=== PATIENT | female | born 1960 | race American Indian/Alaskan Native ===

== ENCOUNTER 2017-09-26 15:35 | Emergency (ER) | payer SELFPAY ==
--- NOTE | 2017-09-26 20:07 | Emergency Department Report ---
ED ENT HPI - General Chief complaint: Headache Stated complaint: HEADACHE,EARACHE,AND TOOTHACHE Time Seen by Provider: 09/26/17 20:00 Source: patient Mode of arrival: Ambulatory Limitations: No Limitations - History of Present Illness Initial comments: Patient reports that she has right earache and toothache to lower front tooth. She is also saying that pain is radiating up to her head. This has been ongoing for days. No relief with [id number] medication. Denies any fever or chills. Pain is 8 out of 10 and achy. Worse with eating. Pain is constant. Patient states that she has an appointment with grade need to have a tooth pulled. Denies any sore throat or drooling. She said this has been ongoing problem and she cannot bear pain. No alleviating factor, Exacerbated by eating. Negative cough, shortness of breath, chest pain or runny nose. Denies any dizziness or blurred vision. Denies any head injury or trauma. MD complaint: tooth pain Onset/Timin Location: R ear, tooth # (lower front), other (right side of head) Severity: severe (8/10) Severity scale (0 -10): 8 Quality: aching Consistency: constant Improves with: rest Worsens with: eating, movement Context- Dental: history of dental caries, poor dental care Associated Symptoms: toothache. denies: fever, cough, gum swelling, pain with swallowing, sore throat, tinnitus, hearing loss, discharge from ear, rhinorrhea - Related Data Previous Rx's Medication Instructions Recorded Last Taken Type Acetaminophen/Codeine [Tylenol 1 tab PO Q6H PRN #12 tab 09/26/17 Unknown Rx /Codeine # 3 tab] Amoxicillin [Amoxicillin TAB] 875 mg PO BID 10 Days #20 tablet 09/26/17 Unknown Rx Ibuprofen [Motrin] 800 mg PO Q8HR PRN #20 tablet 09/26/17 Unknown Rx Allergies Allergy/AdvReac Type Severity Reaction Status Date / Time No Known Allergies Allergy Unverified 09/26/17 15:45 ED Dental HPI - General Chief complaint: Headache Stated complaint: HEADACHE,EARACHE,AND TOOTHACHE Time Seen by Provider: 09/26/17 20:00 Source: patient Mode of arrival: Ambulatory Limitations: No Limitations - Related Data Previous Rx's Medication Instructions Recorded Last Taken Type Acetaminophen/Codeine [Tylenol 1 tab PO Q6H PRN #12 tab 09/26/17 Unknown Rx /Codeine # 3 tab] Amoxicillin [Amoxicillin TAB] 875 mg PO BID 10 Days #20 tablet 09/26/17 Unknown Rx Ibuprofen [Motrin] 800 mg PO Q8HR PRN #20 tablet 09/26/17 Unknown Rx Allergies Allergy/AdvReac Type Severity Reaction Status Date / Time No Known Allergies Allergy Unverified 09/26/17 15:45 ED Review of Systems ROS: Stated complaint: HEADACHE,EARACHE,AND TOOTHACHE Other details as noted in HPI Constitutional: denies: chills, fever Eyes: denies: eye pain, eye discharge, vision change ENT: ear pain, dental pain. denies: throat pain, hearing loss, congestion Respiratory: denies: cough, shortness of breath, SOB with exertion, SOB at rest , stridor, wheezing Cardiovascular: denies: chest pain, palpitations, dyspnea on exertion, edema, syncope, paroxysmal nocturnal dyspnea Gastrointestinal: denies: nausea, vomiting Genitourinary: denies: urgency, dysuria, discharge Musculoskeletal: denies: back pain, joint swelling, arthralgia Skin: denies: rash, lesions Neurological: headache. denies: weakness, numbness, paresthesias, confusion, abnormal gait, vertigo ED Past Medical Hx - Past Medical History Previous Medical History?: Yes Hx Hypertension: Yes Additional medical history: DENTAL CARIES - Surgical History Past Surgical History?: Yes Additional Surgical History: PARTIAL HYSTERECTOMY - Family History Family history: hypertension - Social History Smoking Status: Never Smoker Substance Use Type: Non Opiate Pain Other Social History: Single , lives family - Medications Home Medications: Home Medications Medication Instructions Recorded Confirmed Last Taken Type Acetaminophen/Codeine [Tylenol 1 tab PO Q6H PRN #12 tab 09/26/17 Unknown Rx /Codeine # 3 tab] Amoxicillin [Amoxicillin TAB] 875 mg PO BID 10 Days #20 tablet 09/26/17 Unknown Rx Ibuprofen [Motrin] 800 mg PO Q8HR PRN #20 tablet 09/26/17 Unknown Rx ED Physical Exam - General Limitations: No Limitations General appearance: alert, in no apparent distress - Head Head exam: Present: atraumatic, normocephalic, normal inspection - Eye Eye exam: Present: normal appearance, PERRL, EOMI Pupils: Present: normal accommodation - ENT ENT exam: Present: normal orophraynx, mucous membranes moist, TM's normal bilaterally, normal external ear exam. Absent: normal exam - Expanded ENT Exam Expanded Ear exam: Present: normal external inspection Mouth exam: Present: tongue normal. Absent: drooling, trismus, muffled voice Teeth exam: Present: dental caries (23, 2425 and 26), dental tenderness # ( around #23, 24, 25 and 26), other (gingivitis, patient with all missing teeth except for 23, 24, 25 and 26 With dental caries) Throat exam: Positive: normal inspection. Negative: tonsillar erythema, tonsillomegaly, tonsillar exudate, R peritonsillar mass, L peritonsillar mass - Neck Neck exam: Present: normal inspection, full ROM. Absent: tenderness, lymphadenopathy - Respiratory Respiratory exam: Present: normal lung sounds bilaterally. Absent: respiratory distress, chest wall tenderness, accessory muscle use - Cardiovascular Cardiovascular Exam: Present: regular rate, normal rhythm, normal heart sounds, gallop. Absent: systolic murmur, diastolic murmur - GI/Abdominal GI/Abdominal exam: Present: soft, normal bowel sounds - Extremities Exam Extremities exam: Present: normal inspection, full ROM, normal capillary refill , joint swelling, other (no clubbing, cyanosis or edema. +2 pulses all extremities). Absent: tenderness, pedal edema - Back Exam Back exam: Present: normal inspection, full ROM - Neurological Exam Neurological exam: Present: alert, oriented X3, normal gait, reflexes normal, other (no gross focal deficit). Absent: motor sensory deficit - Psychiatric Psychiatric exam: Present: normal affect, normal mood - Skin Skin exam: Present: warm, dry, intact, normal color. Absent: rash ED Course Vital Signs 09/26/17 15:45 Temperature 98.8 F Pulse Rate 77 Respiratory 18 Rate Blood Pressure 159/98 O2 Sat by Pulse 99 Oximetry - Reevaluation(s) Reevaluation #1: 09/26/17 21:36 She given Toradol 60 mg IM and tramadol 50 mg by mouth for dental pain. She voiced relief of pain down to 2 out of 10 and no headache or earache at present. ED Medical Decision Making - Medical Decision Making ED course: She reported and toothache that is radiating to right side of head and right ear. And that she has an appointment at [facility] to remove tooth #23, 24 ,25 and 26 which are tender to palpate around gumline. And patient with gingivitis. She has no teeth except for those mentioned above. All teeth with dental caries. Patient said that this has been ongoing and pain has worsened today. She was given Toradol 60 mg IM and tramadol 50 mg by mouth for pain which relieved her pain. Patient discharged home to follow-up with [facility] for removal of tooth and I also gave her information at [facility] dental clinic if she cannot get into [facility]. I discussed diagnosis and treatment plan and she is in agreement. Patient discharged home with prescription for Motrin, Tylenol 3 and amoxicillin. Critical care attestation.: If time is entered above; I have spent that time in minutes in the direct care of this critically ill patient, excluding procedure time. ED Disposition Clinical Impression: Gingivitis, Tooth caries, Tooth ache Disposition: TO HOME OR SELFCARE Is pt being admited?: No Does the pt Need Aspirin: No Condition: Stable Instructions: Dental Caries (ED), Toothache (ED), Gingivitis (ED) Additional Instructions: Please keep your appointment at [facility] to evaluate and treat dental caries and gingivitis. If he cannot get a [facility] clinic, call [facility] dental clinic tomorrow to see if he can get early appointment Take Motrin and Tylenol No. 3 for pain but please do not drive or operate heavy machinery while taking Tylenol No. 3 causes drowsiness Take antibiotic as prescribed Prescriptions: Acetaminophen/Codeine [Tylenol /Codeine # 3 tab] 1 tab PO Q6H PRN #12 tab PRN Reason: severe Amoxicillin [Amoxicillin TAB] 875 mg PO BID 10 Days #20 tablet Ibuprofen [Motrin] 800 mg PO Q8HR PRN #20 tablet PRN Reason: mild to moderate pain Referrals: [facility] [Outside] - 3-5 Days [facility] [Outside] - 3-5 Days Forms: Work/School Release Form(ED)
[2017-09-26] MEDS ORDERED: TORADOL IM ONE (20:08)
[2017-09-26] MEDS ORDERED: ULTRAM PO ONE (20:09)
[2017-09-26 21:55] VITALS: BP 146/94
== END 2017-09-26 21:55 | disposition home or self-care (01) ==
LOC: ED 15:35
DX: K05.10 Chronic gingivitis, plaque induced (principal); K02.9 Dental caries, unspecified; I10 Essential (primary) hypertension; Z90.711 Acquired absence of uterus with remaining cervical stump
CPT/HCPCS: 96372; 99282; J1885

== ENCOUNTER 2017-12-04 09:27 | Emergency (ER) | payer OTHER ==
--- NOTE | 2017-12-04 11:37 | Emergency Department Report ---
Eye Injury/Foreign Body - HPI Duration: 4 Days Eye Location: Right Severity: Moderate Tetanus Status: Not up to Date Eye Symptoms: Eye Pain: Yes, Blurred Vision: No, Eye Redness: No, Grinding/ Hammering Metal: No, Used Eye Protection: No, Contact Lens Use: No, Recalls Injury: No, Photophobia: No Other History: This is a 56 y.o. female that presents with right eye swelling and blisters for 4 days. Patient reports noticing small bumps on right upper eyelid 3 days ago. Yesterday a large bump appeared to left of right eye near nose tender to touch with purulent discharge. Denies wearing contacts or glasses, photophobia, fever, ED Review of Systems ROS: Stated complaint: RT EYE SWOLLEN Other details as noted in HPI Constitutional: denies: chills, fever Eyes: other (blistering and swelling right upper eyelid). denies: eye pain, eye discharge, vision change Respiratory: denies: cough, shortness of breath, wheezing Cardiovascular: denies: chest pain, palpitations Gastrointestinal: denies: abdominal pain, nausea, diarrhea Skin: denies: rash, lesions Neurological: denies: headache, weakness, numbness, paresthesias Psychiatric: denies: anxiety, depression ED Past Medical Hx - Past Medical History Hx Hypertension: Yes Additional medical history: DENTAL CARIES - Surgical History Past Surgical History?: Yes Additional Surgical History: PARTIAL HYSTERECTOMY - Social History Smoking Status: Never Smoker Substance Use Type: None - Medications Home Medications: Home Medications Medication Instructions Recorded Confirmed Last Taken Type Acetaminophen/Codeine [Tylenol 1 tab PO Q6H PRN #12 tab 09/26/17 Unknown Rx /Codeine # 3 tab] Amoxicillin [Amoxicillin TAB] 875 mg PO BID 10 Days #20 tablet 09/26/17 Unknown Rx Ibuprofen [Motrin] 800 mg PO Q8HR PRN #20 tablet 09/26/17 Unknown Rx Amoxicillin/Potassium Clav 1 each PO BID 7 Days #14 tablet 12/04/17 Unknown Rx [Augmentin 500-125 Tablet] Ibuprofen [Motrin 800 MG tab] 800 mg PO Q8HR PRN #20 tablet 12/04/17 Unknown Rx Valacyclovir HCl [Valtrex] 1,000 mg PO TID #21 tablet 12/04/17 Unknown Rx Eye Injury Exam - Exam General: Vital signs noted. No distress. Alert and acting appropriately. - Visual Acuity Right Vision Acuity Degree: 20/30 Eye Exam: Right Chemosis, Both EOMI, Neither Injection, Neither Abnormal Pupil, Neither Eye Foreign Body, Neither Lid Foreign Body, Neither Mucous Discharge, Neither Purulent Discharge, Neither Fluorescein Uptake, Neither Fluorescein Uptake (slit lamp), Neither Cell/Flare (slit lamp), Neither Corneal Edema, Neither Photophobia Exam: vesicular erythematous rash right upper eyelid, 1/2 cm papule to left of right eye, no active drainage, tender to touch Left Vision Acuity Degree: 20/30 ED Course Vital Signs 12/04/17 09:35 Temperature 98.4 F Pulse Rate 66 Respiratory 18 Rate Blood Pressure 126/89 O2 Sat by Pulse 100 Oximetry ED Medical Decision Making - Medical Decision Making This is a 56 y.o. female that presents with vesicular rash of right upper eyelid for 4 days. Patient was examined by myself. Patient is in no acute distress. No labs or radiograph obtained. Physical findings susceptible of herpes ophthalmicus. Patient given valacyclovir 1000 mg by mouth once while in ER and tetanus vaccine. Start valacyclovir, ibuprofen, and Augmentin. Patient instructed to follow-up with ophthalmology in 24 hours. Follow-up with primary care provider in 2-3 days. Critical care attestation.: If time is entered above; I have spent that time in minutes in the direct care of this critically ill patient, excluding procedure time. ED Disposition Clinical Impression: Herpes zoster ophthalmicus of right eye Disposition: DC-01 TO HOME OR SELFCARE Is pt being admited?: No Does the pt Need Aspirin: No Condition: Stable Instructions: Herpes Zoster (ED) Additional Instructions: Follow-up with community health nurse staff in 24-48 hours for reevaluation of vision. Complete full course of antiviral medication and antibiotics as prescribed. Take ibuprofen every 8 hours as needed for pain. Follow-up with primary care provider in 2-3 days. Prescriptions: Amoxicillin/Potassium Clav [Augmentin 500-125 Tablet] 1 each PO BID 7 Days #14 tablet Ibuprofen [Motrin 800 MG tab] 800 mg PO Q8HR PRN #20 tablet PRN Reason: Pain , Severe (7-10) Valacyclovir HCl [Valtrex] 1,000 mg PO TID #21 tablet Referrals: [facility] [Provider Group] - 3-5 Days SAWYER MCKEON MD [Staff Physician] - 3-5 Days AURA LAURENT MD [Staff Physician] - 3-5 Days [facility] [Outside] - 3-5 Days Time of Disposition: 12:54 Print Language: AFGHAN
[2017-12-04 13:43] VITALS: BP 130/70
[2017-12-04] MEDS ORDERED: VALTREX PO ONE (13:58)
== END 2017-12-04 13:42 | disposition home or self-care (01) ==
LOC: ED 09:27
DX: B02.39 Other herpes zoster eye disease (principal); I10 Essential (primary) hypertension; Z90.711 Acquired absence of uterus with remaining cervical stump
CPT/HCPCS: 99282

== ENCOUNTER 2018-01-16 09:16 | Emergency (ER) | payer SELFPAY ==
[2018-01-16 09:25] VITALS: BP 142/90
[2018-01-16] MEDS ORDERED: NORCO 10/325 PO ONE (12:55)
[2018-01-16] MEDS ORDERED: ZOFRAN ODT PO ONE (12:55)
--- NOTE | 2018-01-16 13:02 | Emergency Department Report ---
ED General Adult HPI - General Chief complaint: Dental/Oral Stated complaint: EAR ACHE/TOOTHACHE Time Seen by Provider: 01/16/18 12:25 Source: patient Mode of arrival: Ambulatory Limitations: No Limitations - History of Present Illness Initial comments: Patient presents to the emergency department with a chief complaint of dental pain. Patient states this morning around 3 AM she noticed that she was having some pain on the right side of her mouth and the lower aspect. Patient states she has multiple dental issues and has not seen a dentist. Patient denies fever , chest pain, shortness breath, headache. -: Sudden Radiation: non-radiation Severity scale (0 -10): 7 Quality: constant Improves with: none Worsens with: cold therapy, eating Associated Symptoms: denies other symptoms Treatments Prior to Arrival: NSAID - Related Data Previous Rx's Medication Instructions Recorded Last Taken Type Acetaminophen/Codeine [Tylenol 1 tab PO Q6H PRN #12 tab 09/26/17 Unknown Rx /Codeine # 3 tab] Amoxicillin [Amoxicillin TAB] 875 mg PO BID 10 Days #20 tablet 09/26/17 Unknown Rx Ibuprofen [Motrin] 800 mg PO Q8HR PRN #20 tablet 09/26/17 Unknown Rx Amoxicillin/Potassium Clav 1 each PO BID 7 Days #14 tablet 12/04/17 Unknown Rx [Augmentin 500-125 Tablet] Ibuprofen [Motrin 800 MG tab] 800 mg PO Q8HR PRN #20 tablet 12/04/17 Unknown Rx Valacyclovir HCl [Valtrex] 1,000 mg PO TID #21 tablet 12/04/17 Unknown Rx HYDROcodone/ACETAMINOPHEN [[place] 1 each PO Q6HR PRN #12 tablet 01/16/18 Unknown Rx 5-325 Tablet] Ibuprofen [Motrin] 800 mg PO Q8HR PRN #30 tablet 01/16/18 Unknown Rx Penicillin V Potassium 500 mg PO TID #21 tablet 01/16/18 Unknown Rx Allergies Allergy/AdvReac Type Severity Reaction Status Date / Time No Known Allergies Allergy Unverified 09/26/17 15:45 ED Review of Systems ROS: Stated complaint: EAR ACHE/TOOTHACHE Other details as noted in HPI Constitutional: denies: chills, fever Eyes: denies: eye pain, eye discharge, vision change ENT: dental pain. denies: ear pain, throat pain Respiratory: denies: cough, shortness of breath, wheezing Cardiovascular: denies: chest pain, palpitations Endocrine: no symptoms reported Gastrointestinal: denies: abdominal pain, nausea, diarrhea Genitourinary: denies: urgency, dysuria, discharge Musculoskeletal: denies: back pain, joint swelling, arthralgia Skin: denies: rash, lesions Neurological: denies: headache, weakness, paresthesias Psychiatric: denies: anxiety, depression Hematological/Lymphatic: denies: easy bleeding, easy bruising ED Past Medical Hx - Past Medical History Hx Hypertension: No Additional medical history: DENTAL CARIES - Surgical History Additional Surgical History: PARTIAL HYSTERECTOMY - Social History Smoking Status: Never Smoker Substance Use Type: None - Medications Home Medications: Home Medications Medication Instructions Recorded Confirmed Last Taken Type Acetaminophen/Codeine [Tylenol 1 tab PO Q6H PRN #12 tab 09/26/17 Unknown Rx /Codeine # 3 tab] Amoxicillin [Amoxicillin TAB] 875 mg PO BID 10 Days #20 tablet 09/26/17 Unknown Rx Ibuprofen [Motrin] 800 mg PO Q8HR PRN #20 tablet 09/26/17 Unknown Rx Amoxicillin/Potassium Clav 1 each PO BID 7 Days #14 tablet 12/04/17 Unknown Rx [Augmentin 500-125 Tablet] Ibuprofen [Motrin 800 MG tab] 800 mg PO Q8HR PRN #20 tablet 12/04/17 Unknown Rx Valacyclovir HCl [Valtrex] 1,000 mg PO TID #21 tablet 12/04/17 Unknown Rx HYDROcodone/ACETAMINOPHEN [[place] 1 each PO Q6HR PRN #12 tablet 01/16/18 Unknown Rx 5-325 Tablet] Ibuprofen [Motrin] 800 mg PO Q8HR PRN #30 tablet 01/16/18 Unknown Rx Penicillin V Potassium 500 mg PO TID #21 tablet 01/16/18 Unknown Rx ED Physical Exam - General Limitations: No Limitations General appearance: alert, in no apparent distress - Head Head exam: Present: atraumatic, normocephalic - Eye Eye exam: Present: normal appearance - ENT ENT exam: Present: mucous membranes moist, other (dental caries) - Neck Neck exam: Present: normal inspection - Respiratory Respiratory exam: Present: normal lung sounds bilaterally. Absent: respiratory distress - Cardiovascular Cardiovascular Exam: Present: regular rate, normal rhythm. Absent: systolic murmur, diastolic murmur, rubs, gallop - GI/Abdominal GI/Abdominal exam: Present: soft, normal bowel sounds - Extremities Exam Extremities exam: Present: normal inspection - Back Exam Back exam: Present: normal inspection - Neurological Exam Neurological exam: Present: alert, oriented X3 - Psychiatric Psychiatric exam: Present: normal affect, normal mood - Skin Skin exam: Present: warm, dry, intact, normal color. Absent: rash ED Course Vital Signs 01/16/18 09:22 Temperature 98.4 F Pulse Rate 67 Respiratory 15 Rate Blood Pressure 142/90 O2 Sat by Pulse 100 Oximetry ED Medical Decision Making - Medical Decision Making Discussed plan of care with patient Critical care attestation.: If time is entered above; I have spent that time in minutes in the direct care of this critically ill patient, excluding procedure time. ED Disposition Clinical Impression: Pain, dental Disposition: DC- TO HOME OR SELFCARE Is pt being admited?: No Does the pt Need Aspirin: No Condition: Stable Instructions: Toothache (ED) Additional Instructions: return if worse Prescriptions: HYDROcodone/ACETAMINOPHEN [[place] 5-325 Tablet] 1 each PO Q6HR PRN #12 tablet PRN Reason: pain Ibuprofen [Motrin] 800 mg PO Q8HR PRN #30 tablet PRN Reason: pain Penicillin V Potassium 500 mg PO TID #21 tablet Referrals: PRIMARY CARE, [Primary Care Provider] - 3-5 Days [facility] [Outside] - 3-5 Days Time of Disposition: 12:59
== END 2018-01-16 13:19 | disposition home or self-care (01) ==
LOC: ED 09:16
DX: K08.89 Other specified disorders of teeth and supporting structures (principal); Z90.711 Acquired absence of uterus with remaining cervical stump
CPT/HCPCS: 99282; Q0162

== ENCOUNTER 2018-10-30 17:10 | Emergency (ER) | payer OTHER, SELFPAY ==
--- NOTE | 2018-10-30 17:15 | Emergency Department Report ---
Blank Doc - Documentation Documentation: This is a 57-year-old female that presents with cough and left knee pain. This initial assessment/diagnostic orders/clinical plan/treatment(s) is/are subject to change based on patient's health status, clinical progression and re- assessment by fellow clinical providers in the ED. Further treatment and workup at subsequent clinical providers discretion. Patient/guardians urged not to elope from the ED as their condition may be serious if not clinically assessed and managed. Initial orders include: 1- Patient sent to [facility] for further evaluation and treatment 2- xrays
--- NOTE | 2018-10-30 18:55 | Emergency Department Report ---
ED General Adult HPI - General Chief complaint: Extremity Injury, Lower Stated complaint: COUGH/LT KNEE PAIN Time Seen by Provider: 10/30/18 17:14 Source: patient Mode of arrival: Ambulatory Limitations: No Limitations - History of Present Illness Initial comments: Pt is a 57 yo female who presents to the ED with c/o left knee pain that began two weeks ago. She denies any fall or injury. she denies any numbness or weakness. she has never injured previously. she denies any known hx of arthritis. she is also c/o a cough that began three weeks ago. she has not been taking anything for the cough. she denies any sputum production. she denies any fever or nasal congestion. she denies any PMHx. no allergies to meds. - Related Data Previous Rx's Medication Instructions Recorded Last Taken Type Acetaminophen/Codeine [Tylenol 1 tab PO Q6H PRN #12 tab 09/26/17 Unknown Rx /Codeine # 3 tab] Amoxicillin [Amoxicillin TAB] 875 mg PO BID 10 Days #20 tablet 09/26/17 Unknown Rx Ibuprofen [Motrin] 800 mg PO Q8HR PRN #20 tablet 09/26/17 Unknown Rx Amoxicillin/Potassium Clav 1 each PO BID 7 Days #14 tablet 12/04/17 Unknown Rx [Augmentin 500-125 Tablet] Ibuprofen [Motrin 800 MG tab] 800 mg PO Q8HR PRN #20 tablet 12/04/17 Unknown Rx Valacyclovir HCl [Valtrex] 1,000 mg PO TID #21 tablet 12/04/17 Unknown Rx HYDROcodone/ACETAMINOPHEN [[place] 1 each PO Q6HR PRN #12 tablet 01/16/18 Unknown Rx 5-325 Tablet] Ibuprofen [Motrin] 800 mg PO Q8HR PRN #30 tablet 01/16/18 Unknown Rx Penicillin V Potassium 500 mg PO TID #21 tablet 01/16/18 Unknown Rx Benzonatate [Tessalon Perles] 100 mg PO Q8HR PRN #20 capsule 10/30/18 Unknown Rx Cetirizine HCl [Zyrtec 10mg tab] 10 mg PO DAILY #20 tablet 10/30/18 Unknown Rx Naproxen [EC-Naprosyn] 500 mg PO BID PRN #20 tablet. 10/30/18 Unknown Rx Allergies Allergy/AdvReac Type Severity Reaction Status Date / Time No Known Allergies Allergy Verified 10/30/18 17:11 ED Review of Systems ROS: Stated complaint: COUGH/LT KNEE PAIN Other details as noted in HPI Comment: All other systems reviewed and negative ED Past Medical Hx - Past Medical History Previous Medical History?: No Hx Hypertension: No Additional medical history: DENTAL CARIES - Surgical History Additional Surgical History: PARTIAL HYSTERECTOMY - Social History Smoking Status: Never Smoker Substance Use Type: None - Medications Home Medications: Home Medications Medication Instructions Recorded Confirmed Last Taken Type Acetaminophen/Codeine [Tylenol 1 tab PO Q6H PRN #12 tab 09/26/17 Unknown Rx /Codeine # 3 tab] Amoxicillin [Amoxicillin TAB] 875 mg PO BID 10 Days #20 tablet 09/26/17 Unknown Rx Ibuprofen [Motrin] 800 mg PO Q8HR PRN #20 tablet 09/26/17 Unknown Rx Amoxicillin/Potassium Clav 1 each PO BID 7 Days #14 tablet 12/04/17 Unknown Rx [Augmentin 500-125 Tablet] Ibuprofen [Motrin 800 MG tab] 800 mg PO Q8HR PRN #20 tablet 12/04/17 Unknown Rx Valacyclovir HCl [Valtrex] 1,000 mg PO TID #21 tablet 12/04/17 Unknown Rx HYDROcodone/ACETAMINOPHEN [[place] 1 each PO Q6HR PRN #12 tablet 01/16/18 Unknown Rx 5-325 Tablet] Ibuprofen [Motrin] 800 mg PO Q8HR PRN #30 tablet 01/16/18 Unknown Rx Penicillin V Potassium 500 mg PO TID #21 tablet 01/16/18 Unknown Rx Benzonatate [Tessalon Perles] 100 mg PO Q8HR PRN #20 capsule 10/30/18 Unknown Rx Cetirizine HCl [Zyrtec 10mg tab] 10 mg PO DAILY #20 tablet 10/30/18 Unknown Rx Naproxen [EC-Naprosyn] 500 mg PO BID PRN #20 tablet. 10/30/18 Unknown Rx ED Physical Exam - General Limitations: No Limitations General appearance: alert, in no apparent distress - Head Head exam: Present: atraumatic, normocephalic - Eye Eye exam: Present: normal appearance, PERRL - ENT ENT exam: Present: other (pale turbinates ) - Respiratory Respiratory exam: Present: normal lung sounds bilaterally. Absent: respiratory distress, wheezes, rales, rhonchi, stridor, chest wall tenderness, accessory muscle use, decreased breath sounds, prolonged expiratory - Cardiovascular Cardiovascular Exam: Present: regular rate, normal rhythm, normal heart sounds. Absent: systolic murmur, diastolic murmur, rubs, gallop - Extremities Exam Extremities exam: Present: other (TTP over the anterior portion of the right knee, very small amount of edema just inferior to the right patella, FROM of the right knee without difficulty, no obvious joint laxity, good distal pulses, sensation intact) - Neurological Exam Neurological exam: Present: alert, oriented X3 - Psychiatric Psychiatric exam: Present: normal affect, normal mood - Skin Skin exam: Present: warm, dry, intact ED Course Vital Signs 10/30/18 17:14 Temperature 98.2 F Pulse Rate 72 Respiratory 16 Rate Blood Pressure 127/88 O2 Sat by Pulse 99 Oximetry ED Medical Decision Making - Radiology Data Radiology results: report reviewed PROCEDURE: XR KNEE 3V LT TECHNIQUE: Frontal, lateral, oblique views left knee HISTORY: pain COMPARISONS: None FINDINGS: There is no evidence of fracture or subluxation. There is evidence of degenerative change of the tibiofemoral and patellofemoral joints with joint space loss. There is the appearance of an effusion in the suprapatellar pouch. IMPRESSION: 1. No evidence of fracture or subluxation. 2. Evidence of degenerative change of the tibiofemoral and patellofemoral joints with the appearance of a joint effusion. If further imaging is required, MRI may be helpful. This document is electronically signed by Demetria Leiva MD., October 30 2018 07:19:06 PM ET Transcribed By: ED Dictated By: DEMETRIA LEIVA MD Electronically Authenticated By: DEMETRIA LEIVA MD Signed Date/Time: 10/30/181920 PROCEDURE: XR CHEST ROUTINE 2V TECHNIQUE: PA and lateral chest radiographs were obtained. HISTORY: cough COMPARISONS: None. FINDINGS: There is no evidence of infiltrate, pneumothorax or pleural fluid collection. The cardiac silhouette is enlarged. The thoracic aorta is tortuous. The bony structures are notable for degenerative change of the left shoulder joints. The right shoulder joints are not imaged. There is dextrocurvature of the thoracic spine. IMPRESSION: 1. No evidence of an acute pulmonary process. 2. Enlarged cardiac silhouette. 3. Tortuosity thoracic aorta. This document is electronically signed by Demetria Leiva MD., October 30 2018 07:21:36 PM ET Transcribed By: ED Dictated By: DEMERTIA LEIVA MD Electronically Authenticated By: DEMETRIA LEIVA MD Signed Date/Time: 10/30/18 192 - Medical Decision Making Pt is a 57 yo female who presents to the ED with c/o left knee pain that began two weeks ago. She denies any fall or injury. she denies any numbness or weakness. she has never injured previously. she denies any known hx of arthritis. she is also c/o a cough that began three weeks ago. she has not been taking anything for the cough. she denies any sputum production. she denies any fever or nasal congestion. she denies any PMHx. no allergies to meds. on exam: TTP over the anterior portion of the right knee, very small amount of edema just inferior to the right patella, FROM of the right knee without difficulty, no obvious joint laxity, good distal pulses, sensation intact, no increased warmth, no erythema, good ROM of the right knee. lungs are clear bilaterally, pale nasal turbinates. XR right knee 1. No evidence of fracture or subluxation. Evidence of degenerative change of the tibiofemoral and patellofemoral joints with the appearance of a joint effusion. CXR with 1. No evidence of an acute pulmonary process.Enlarged cardiac silhouette. Tortuosity thoracic aorta. vitals are normal. effusion does not hinder ROM of the knee, will have pt follow up with Dr. Noe, orthopedic in the next 2-3 days. pt given anti-inflammatory, zyrtec, and tessalon perles. discussed to please take medications as prescribed. follow up with a primary care doctor and an orthopedic doctor in the next 2-3 days. may use ice, elevation, rest, compression. return to the emergency room for any new or worsening symptoms. Critical care attestation.: If time is entered above; I have spent that time in minutes in the direct care of this critically ill patient, excluding procedure time. ED Disposition Clinical Impression: Effusion of right knee joint, Cough Osteoarthritis of right knee Qualifiers: Osteoarthritis type: unspecified Qualified Code(s): M17.11 - Unilateral primary osteoarthritis, right knee Disposition: DC-01 TO HOME OR SELFCARE Is pt being admited?: No Does the pt Need Aspirin: No Condition: Stable Instructions: Osteoarthritis (ED), Knee Effusion (ED) Additional Instructions: Please take medication as prescribed. follow up with a primary care doctor and an orthopedic doctor in the next 2-3 days. may use ice, elevation, rest, compression. return to the emergency room for any new or worsening symptoms. Prescriptions: Naproxen [EC-Naprosyn] 500 mg PO BID PRN #20 tablet.dr BOWERS Reason: Pain, Moderate (4-6) Benzonatate [Tessalon Perles] 100 mg PO Q8HR PRN #20 capsule PRN Reason: Cough Cetirizine HCl [Zyrtec 10mg tab] 10 mg PO DAILY #20 tablet Referrals: JOSE VASQUEZ MD [Primary Care Provider] - 2-3 Days SAWYER NOE MD [Staff Physician] - 2-3 Days Time of Disposition: 19:28 Print Language: MALAY
--- NOTE | 2018-10-30 19:21 | XRay Report ---
PROCEDURE: XR KNEE 3V LT TECHNIQUE: Frontal, lateral, oblique views left knee HISTORY: pain COMPARISONS: None FINDINGS: There is no evidence of fracture or subluxation. There is evidence of degenerative change of the tibiofemoral and patellofemoral joints with joint spa ce loss. There is the appearance of an effusion in the suprapatellar pouch. IMPRESSION: 1. No evidence of fracture or subluxation. 2. Evidence of degenerative change of the tibiofemoral and patellofemoral joints with the appearance of a joint effusion. If further imaging is required, MRI may be helpful. This document is electronically signed by Demetria Leiva MD., October 30 2018 07:19:06 PM ET
--- NOTE | 2018-10-30 19:23 | XRay Report ---
PROCEDURE: XR CHEST ROUTINE 2V TECHNIQUE: PA and lateral chest radiographs were obtained. HISTORY: cough COMPARISONS: None. FINDINGS: There is no evidence of infiltrate, pneumothorax or pleural fluid collection. The cardiac silhouette is enlarged. The thoracic aorta is tortuous. The bony structures are notable for degenerative change of the left shoulder joints. The right should er joints are not imaged. There is dextrocurvature of the thoracic spine. IMPRESSION: 1. No evidence of an acute pulmonary process. 2. Enlarged cardiac silhouette. 3. Tortuosity thoracic aorta. This document is electronically signed by Demetria Leiva MD., October 30 2018 07:21:36 PM ET
[2018-10-30 19:46] VITALS: BP 149/91
== END 2018-10-30 19:46 | disposition home or self-care (01) ==
LOC: ED 17:10
DX: M17.11 Unilateral primary osteoarthritis, right knee (principal); M25.461 Effusion, right knee; R05 Cough; Z90.711 Acquired absence of uterus with remaining cervical stump
CPT/HCPCS: 71046

== ENCOUNTER 2018-11-13 15:10 | Emergency (ER) | payer OTHER ==
[2018-11-13 15:17] VITALS: BP 146/81
--- NOTE | 2018-11-13 15:38 | Emergency Department Report ---
ED ENT HPI - General Chief complaint: Dental/Oral Stated complaint: EAR ACHE/HEADACHE/TOOTHACHE Source: patient, family Mode of arrival: Ambulatory Limitations: No Limitations - History of Present Illness Initial comments: 57 y/o female comes in for toothache , right ear times 2 days. Have not taking anything for pain. She is aware that she has a bad tooth in her moth. No jonas inage from ear. No fevers. No PMH. No meds. NKDA. complaint: tooth pain, ear pain Onset/Timin -: days(s) Location: R ear Severity: severe Severity scale (0 -10): 8 Quality: stabbing, aching, sharp Consistency: constant Improves with: NSAID Worsens with: none Context- Dental: history of dental caries Associated Symptoms: gum swelling, toothache. denies: fever, cough, discharge from ear, rhinorrhea - Related Data Previous Rx's Medication Instructions Recorded Last Taken Type Acetaminophen/Codeine [Tylenol 1 tab PO Q6H PRN #12 tab 09/26/17 Unknown Rx /Codeine # 3 tab] Amoxicillin/Potassium Clav 1 each PO BID 7 Days #14 tablet 12/04/17 Unknown Rx [Augmentin 500-125 Tablet] Ibuprofen [Motrin 800 MG tab] 800 mg PO Q8HR PRN #20 tablet 12/04/17 Unknown Rx Valacyclovir HCl [Valtrex] 1,000 mg PO TID #21 tablet 12/04/17 Unknown Rx HYDROcodone/ACETAMINOPHEN [[place] 1 each PO Q6HR PRN #12 tablet 01/16/18 Unknown Rx 5-325 Tablet] Ibuprofen [Motrin] 800 mg PO Q8HR PRN #30 tablet 01/16/18 Unknown Rx Penicillin V Potassium 500 mg PO TID #21 tablet 01/16/18 Unknown Rx Benzonatate [Tessalon Perles] 100 mg PO Q8HR PRN #20 capsule 10/30/18 Unknown Rx Cetirizine HCl [Zyrtec 10mg tab] 10 mg PO DAILY #20 tablet 10/30/18 Unknown Rx Naproxen [EC-Naprosyn] 500 mg PO BID PRN #20 tablet. 10/30/18 Unknown Rx Amoxicillin [Amoxicillin TAB] 875 mg PO BID 10 Days #20 tablet 11/13/18 Unknown Rx Ibuprofen [Motrin 800 MG tab] 800 mg PO Q8HR PRN #20 tablet 11/13/18 Unknown Rx Neomy/Polymyx B/Hc (Otic) Soln 4 drops AD TID #1 bottle 11/13/18 Unknown Rx [Cortisporin (Otic) Soln] Allergies Allergy/AdvReac Type Severity Reaction Status Date / Time No Known Allergies Allergy Verified 10/30/18 17:11 ED Dental HPI - General Chief complaint: Dental/Oral Stated complaint: EAR ACHE/HEADACHE/TOOTHACHE Source: patient, family Mode of arrival: Ambulatory Limitations: No Limitations - Related Data Previous Rx's Medication Instructions Recorded Last Taken Type Acetaminophen/Codeine [Tylenol 1 tab PO Q6H PRN #12 tab 09/26/17 Unknown Rx /Codeine # 3 tab] Amoxicillin/Potassium Clav 1 each PO BID 7 Days #14 tablet 12/04/17 Unknown Rx [Augmentin 500-125 Tablet] Ibuprofen [Motrin 800 MG tab] 800 mg PO Q8HR PRN #20 tablet 12/04/17 Unknown Rx Valacyclovir HCl [Valtrex] 1,000 mg PO TID #21 tablet 12/04/17 Unknown Rx HYDROcodone/ACETAMINOPHEN [[place] 1 each PO Q6HR PRN #12 tablet 01/16/18 Unknown Rx 5-325 Tablet] Ibuprofen [Motrin] 800 mg PO Q8HR PRN #30 tablet 01/16/18 Unknown Rx Penicillin V Potassium 500 mg PO TID #21 tablet 01/16/18 Unknown Rx Benzonatate [Tessalon Perles] 100 mg PO Q8HR PRN #20 capsule 10/30/18 Unknown Rx Cetirizine HCl [Zyrtec 10mg tab] 10 mg PO DAILY #20 tablet 10/30/18 Unknown Rx Naproxen [EC-Naprosyn] 500 mg PO BID PRN #20 tablet. 10/30/18 Unknown Rx Amoxicillin [Amoxicillin TAB] 875 mg PO BID 10 Days #20 tablet 11/13/18 Unknown Rx Ibuprofen [Motrin 800 MG tab] 800 mg PO Q8HR PRN #20 tablet 11/13/18 Unknown Rx Neomy/Polymyx B/Hc (Otic) Soln 4 drops AD TID #1 bottle 11/13/18 Unknown Rx [Cortisporin (Otic) Soln] Allergies Allergy/AdvReac Type Severity Reaction Status Date / Time No Known Allergies Allergy Verified 10/30/18 17:11 ED Review of Systems ROS: Stated complaint: EAR ACHE/HEADACHE/TOOTHACHE Other details as noted in HPI Comment: All other systems reviewed and negative ED Past Medical Hx - Past Medical History Hx Hypertension: No Additional medical history: DENTAL CARIES - Surgical History Additional Surgical History: PARTIAL HYSTERECTOMY - Social History Smoking Status: Never Smoker Substance Use Type: None - Medications Home Medications: Home Medications Medication Instructions Recorded Confirmed Last Taken Type Acetaminophen/Codeine [Tylenol 1 tab PO Q6H PRN #12 tab 09/26/17 Unknown Rx /Codeine # 3 tab] Amoxicillin/Potassium Clav 1 each PO BID 7 Days #14 tablet 12/04/17 Unknown Rx [Augmentin 500-125 Tablet] Ibuprofen [Motrin 800 MG tab] 800 mg PO Q8HR PRN #20 tablet 12/04/17 Unknown Rx Valacyclovir HCl [Valtrex] 1,000 mg PO TID #21 tablet 12/04/17 Unknown Rx HYDROcodone/ACETAMINOPHEN [[place] 1 each PO Q6HR PRN #12 tablet 01/16/18 Unknown Rx 5-325 Tablet] Ibuprofen [Motrin] 800 mg PO Q8HR PRN #30 tablet 01/16/18 Unknown Rx Penicillin V Potassium 500 mg PO TID #21 tablet 01/16/18 Unknown Rx Benzonatate [Tessalon Perles] 100 mg PO Q8HR PRN #20 capsule 10/30/18 Unknown Rx Cetirizine HCl [Zyrtec 10mg tab] 10 mg PO DAILY #20 tablet 10/30/18 Unknown Rx Naproxen [EC-Naprosyn] 500 mg PO BID PRN #20 tablet.dr 10/30/18 Unknown Rx Amoxicillin [Amoxicillin TAB] 875 mg PO BID 10 Days #20 tablet 11/13/18 Unknown Rx Ibuprofen [Motrin 800 MG tab] 800 mg PO Q8HR PRN #20 tablet 11/13/18 Unknown Rx Neomy/Polymyx B/Hc (Otic) Soln 4 drops AD TID #1 bottle 11/13/18 Unknown Rx [Cortisporin (Otic) Soln] ED Physical Exam - General Limitations: No Limitations General appearance: alert, in no apparent distress - Head Head exam: Present: atraumatic, normocephalic - Eye Eye exam: Present: EOMI - ENT ENT exam: Present: TM's normal bilaterally - Expanded ENT Exam Expanded TM/Canal exam: Canal Tenderness: Right TM Teeth exam: Present: dental caries, dental tenderness # (26), gingival enlargement, other (rotten to the gums) - Neck Neck exam: Present: normal inspection, full ROM - Neurological Exam Neurological exam: Present: alert, oriented X3, normal gait - Psychiatric Psychiatric exam: Present: normal affect, normal mood - Skin Skin exam: Present: warm, dry, intact, normal color. Absent: rash ED Course Vital Signs 11/13/18 15:16 Temperature 98.1 F Pulse Rate 67 Respiratory 12 Rate Blood Pressure 146/81 [Right] O2 Sat by Pulse 99 Oximetry ED Medical Decision Making - Medical Decision Making 57 y/o female comes in for teeth and right ear pain. Patient will discharge on ibuprofen and amoxicillin and cortiporin. Critical care attestation.: If time is entered above; I have spent that time in minutes in the direct care of this critically ill patient, excluding procedure time. ED Disposition Clinical Impression: Teeth decayed Otitis externa Qualifiers: Otitis externa type: unspecified type Chronicity: acute Laterality: right Qualified Code(s): H60.501 - Unspecified acute noninfective otitis externa, right ear Disposition: DC- TO HOME OR SELFCARE Is pt being admited?: No Does the pt Need Aspirin: No Condition: Stable Instructions: Dental Caries (ED), Otitis Externa (ED) Additional Instructions: complete antibiotic as prescribed pain medication as needed. Use ear drops as prescribed. Follow up with a dentists. Prescriptions: Amoxicillin [Amoxicillin TAB] 875 mg PO BID 10 Days #20 tablet Neomy/Polymyx B/Hc (Otic) Soln [Cortisporin (Otic) Soln] 4 drops AD TID #1 bottle Ibuprofen [Motrin 800 MG tab] 800 mg PO Q8HR PRN #20 tablet PRN Reason: mild to moderate pain Referrals: [facility] [Outside] - 3-5 Days [facility] [Outside] - 3-5 Days [facility] [Outside] - 3-5 Days [facility] [Outside] - 3-5 Days Forms: Work/School Release Form(ED)
== END 2018-11-13 16:40 | disposition home or self-care (01) ==
LOC: ED 15:10
DX: K02.9 Dental caries, unspecified (principal); H60.501 Unspecified acute noninfective otitis externa, right ear; Z79.899 Other long term (current) drug therapy; Z90.710 Acquired absence of both cervix and uterus
CPT/HCPCS: 99282

== ENCOUNTER 2019-04-13 08:13 | Emergency (ER) | payer SELFPAY ==
[2019-04-13] MEDS ORDERED: IBUPROFEN 800 MG TAB PO ONE (09:33)
--- NOTE | 2019-04-13 09:37 | Emergency Department Report ---
ED Headache HPI - General Chief Complaint: Headache Stated Complaint: HEADACHE/LFT KNEE PAIN Time Seen by Provider: 04/13/19 09:33 - History of Present Illness Initial Comments: 58-year-old female presents to the emergency room with intermittent headaches for 2 weeks that her off and on. Patient reports that the Tylenol wasn't helping then headache will come back. Patient states that the pain is mildly sharp on the right temporal, last 2-3 seconds. Patient also reports she is having left knee pain that has been going on for a while. Patient states the pain is 8 out of 10. Patient admits to vomiting on Sunday 1. She admits to mild photophobia. She denies any blurred vision. She does admit to arrival. She states that working around plants seems to make it worse. Timing/Duration: 1 week Quality: severe Head Injury Location: temporal (rt) Recent Head Trauma: no recent headache/trauma Associated Symptoms: nausea/vomiting (times one on Sunday), nasal drainage. denies: sinus infection, stiff neck, vision changes Allergies/Adverse Reactions: Allergies No Known Allergies Allergy (Verified 10/30/18 17:11) Home Medications: Ambulatory Orders Acetaminophen/Codeine [Tylenol /Codeine # 3 tab] 1 tab PO Q6H PRN #12 tab 09/26/17 Amoxicillin/Potassium Clav [Augmentin 500-125 Tablet] 1 each PO BID 7 Days #14 tablet 12/04/17 Ibuprofen [Motrin 800 MG tab] 800 mg PO Q8HR PRN #20 tablet 12/04/17 Valacyclovir HCl [Valtrex] 1,000 mg PO TID #21 tablet 12/04/17 HYDROcodone/ACETAMINOPHEN [[place] 5-325 Tablet] 1 each PO Q6HR PRN #12 tablet 01/16/18 Ibuprofen [Motrin] 800 mg PO Q8HR PRN #30 tablet 01/16/18 Penicillin V Potassium 500 mg PO TID #21 tablet 01/16/18 Benzonatate [Tessalon Perles] 100 mg PO Q8HR PRN #20 capsule 10/30/18 Cetirizine HCl [Zyrtec 10mg tab] 10 mg PO DAILY #20 tablet 10/30/18 Naproxen [EC-Naprosyn] 500 mg PO BID PRN #20 tablet 10/30/18 Amoxicillin [Amoxicillin TAB] 875 mg PO BID 10 Days #20 tablet 11/13/18 Ibuprofen [Motrin 800 MG tab] 800 mg PO Q8HR PRN #20 tablet 11/13/18 Neomy/Polymyx B/Hc (Otic) Soln [Cortisporin (Otic) Soln] 4 drops AD TID #1 bottle 11/13/18 ED Review of Systems ROS: Stated complaint: HEADACHE/LFT KNEE PAIN Other details as noted in HPI Comment: All other systems reviewed and negative ED Past Medical Hx - Past Medical History Previous Medical History?: Yes Hx Hypertension: No Additional medical history: DENTAL CARIES - Surgical History Past Surgical History?: Yes Additional Surgical History: PARTIAL HYSTERECTOMY - Social History Smoking Status: Never Smoker Substance Use Type: None - Medications Home Medications: Home Medications Medication Instructions Recorded Confirmed Last Taken Type Acetaminophen/Codeine [Tylenol 1 tab PO Q6H PRN #12 tab 09/26/17 Unknown Rx /Codeine # 3 tab] Amoxicillin/Potassium Clav 1 each PO BID 7 Days #14 tablet 12/04/17 Unknown Rx [Augmentin 500-125 Tablet] Ibuprofen [Motrin 800 MG tab] 800 mg PO Q8HR PRN #20 tablet 12/04/17 Unknown Rx Valacyclovir HCl [Valtrex] 1,000 mg PO TID #21 tablet 12/04/17 Unknown Rx HYDROcodone/ACETAMINOPHEN [[place] 1 each PO Q6HR PRN #12 tablet 01/16/18 Unknown Rx 5-325 Tablet] Ibuprofen [Motrin] 800 mg PO Q8HR PRN #30 tablet 01/16/18 Unknown Rx Penicillin V Potassium 500 mg PO TID #21 tablet 01/16/18 Unknown Rx Benzonatate [Tessalon Perles] 100 mg PO Q8HR PRN #20 capsule 10/30/18 Unknown Rx Cetirizine HCl [Zyrtec 10mg tab] 10 mg PO DAILY #20 tablet 10/30/18 Unknown Rx Naproxen [EC-Naprosyn] 500 mg PO BID PRN #20 tablet. 10/30/18 Unknown Rx Amoxicillin [Amoxicillin TAB] 875 mg PO BID 10 Days #20 tablet 11/13/18 Unknown Rx Ibuprofen [Motrin 800 MG tab] 800 mg PO Q8HR PRN #20 tablet 11/13/18 Unknown Rx Neomy/Polymyx B/Hc (Otic) Soln 4 drops AD TID #1 bottle 11/13/18 Unknown Rx [Cortisporin (Otic) Soln] ED Physical Exam - General Limitations: No Limitations General appearance: alert, in no apparent distress - Head Head exam: Present: atraumatic, normocephalic - Eye Eye exam: Present: normal appearance, PERRL, EOMI. Absent: periorbital swelling, periorbital tenderness - ENT ENT exam: Present: normal exam, normal orophraynx, mucous membranes moist - Neck Neck exam: Present: normal inspection, full ROM. Absent: tenderness, lymphadenopathy - Extremities Exam Extremities exam: Present: full ROM, tenderness (right knee) - Back Exam Back exam: Present: normal inspection, full ROM - Expanded Neurological Exam Expanded Cranial nerves: EOM's Intact: Normal, Gag Reflex: Normal, Tongue Deviation: Normal, Nystagmus: Normal, Facial Sensation: Normal, Facial Palsy with Forehead Movement: Normal, Facial Palsy without Forehead Movement: Normal Cerebellar function: Finger to Nose: Normal, Heel to Herrera: Normal, Romberg: Normal Upper motor neuron: Vishnu Neglect: Normal, Pronator Drift: Normal, Babinski Sign: Normal, Sensory Extinction: Normal Sensory exam: Upper Extremity Light Touch: Normal, Upper Extremity Pin Prick: Normal, Upper Extremity Temperature: Normal, UE 2 Point Discrimination: Normal, Lower Extremity Light Touch: Normal, Lower Extremity Pin Prick: Normal, Lower Extremity Temperature: Normal, LE 2 Point Discrimination: Normal Motor strength exam: RUE: 4, LUE: 4, RLE: 4, LLE: 4 Best Eye Response (Celoron): (4) open spontaneously Best Motor Response (Celoron): (6) obeys commands Best Verbal Response (Celoron): (5) oriented Tiffanie Total: 15 - Psychiatric Psychiatric exam: Present: normal affect, normal mood - Skin Skin exam: Present: warm, dry, intact, normal color. Absent: rash ED Course Vital Signs 04/13/19 08:43 Temperature 98.3 F Pulse Rate 68 Blood Pressure 139/92 O2 Sat by Pulse 100 Oximetry ED Medical Decision Making - Radiology Data Radiology results: report reviewed Patient: PATO MONZON MR#: [id number] : 1960 Acct:[id number] Age/Sex: 58 / F ADM Date: 04/13/19 Loc: ED Attending Dr: Ordering Physician: KEL ZAVALA Date of Service: 04/13/19 Procedure(s): CT head/brain wo con Accession Number(s): [id number] cc: KEL ZAVALA CT head without contrast INDICATION : headache. TECHNIQUE: Axial imaging performed from the skull apex through the skull base without the use of contrast. All CT scans at this location are performed using CT dose reduction for ALARA by means of automated exposure control. COMPARISON: None FINDINGS: Parenchyma: No acute intracranial hemorrhage or parenchymal abnormality. Ventricles: Ventricles are normal in size and appear symmetric. Soft tissues: Soft tissues including the orbits appear normal. Bones: No acute osseous abnormality. Sinuses: Sinuses and mastoid air cells are clear. IMPRESSION: No acute abnormality. Signer Name: Shaq Dupree MD Signed: 04/13/2019 10:19 AM Workstation Name: [id number] Transcribed By: JW Dictated By: Shaq Dupree MD Electronically Authenticated By: Shaq Dupree MD Signed Date/Time: 04/13/19 1019 DD/ 1018 TD/TT: - Medical Decision Making 58-year-old female presents to the emergency room with intermittent headaches for 2 weeks that her off and on. Patient reports that the Tylenol wasn't helping then headache will come back. Patient states that the pain is mildly sharp on the right temporal, last 2-3 seconds. Patient also reports she is having left knee pain that has been going on for a while. Patient states the pain is 8 out of 10. Patient admits to vomiting on Sunday 1. She admits to mild photophobia. She denies any blurred vision. She does admit to arrival. She states that working around plants seems to make it worse. Ibuprofen [address] of head without contrast Critical care attestation.: If time is entered above; I have spent that time in minutes in the direct care of this critically ill patient, excluding procedure time. ED Disposition Clinical Impression: Headache Qualifiers: Headache type: unspecified Headache chronicity pattern: acute headache Intractability: intractable Qualified Code(s): R51 - Headache Knee pain, chronic Qualifiers: Laterality: left Qualified Code(s): M25.562 - Pain in left knee; G89.29 - Other chronic pain Disposition: DC- TO HOME OR SELFCARE Is pt being admited?: No Does the pt Need Aspirin: No Condition: Stable Additional Instructions: CT is negative for any acute abnormalities. Continue with Tylenol or ibuprofen as needed for pain management. Follow up with the primary care provider if his symptoms persist or gets worse. Referrals: PRIMARY CARE, [Primary Care Provider] - 3-5 Days [facility] [Outside] - 3-5 Days
--- NOTE | 2019-04-13 10:23 | Cat Scan Report ---
CT head without contrast INDICATION : headache. TECHNIQUE: Axial imaging performed from the skull apex through the skull base without the use of con trast. All CT scans at this location are performed using CT dose reduction for ALARA by means of aut omated exposure control. COMPARISON: None FINDINGS: Parenchyma: No acute intracranial hemorrhage or parenchymal abnormality. Ventricles: Ventricles are normal in size and appear symmetric. Soft tissues: Soft tissues including the orbits appear normal. Bones: No acute osseous abnormality. Sinuses: Sinuses and mastoid air cells are clear. IMPRESSION: No acute abnormality. Signer Name: Shaq Dupree MD Signed: 04/13/2019 10:19 AM Workstation Name: [id number]
[2019-04-13 11:59] VITALS: BP 113/84
== END 2019-04-13 11:59 | disposition home or self-care (01) ==
LOC: ED 08:13
DX: G89.29 Other chronic pain (principal); M25.562 Pain in left knee; R51 Headache
CPT/HCPCS: 70450; 99283